=== PATIENT | female | born 1970 | race Two or more races ===

== ENCOUNTER 2023-08-25 15:08 | Outpatient (CLI) | payer OTHER | END 2023-08-25 15:40 | disposition home or self-care (01) | LOC: SONOGRAMA 15:08 | PROVIDERS: ATTEND Pathology Anatomic Pathology & Clinical Pathology | DX: D34 Benign neoplasm of thyroid gland (principal); E07.89 Other specified disorders of thyroid; E04.9 Nontoxic goiter, unspecified ==

== ENCOUNTER 2024-12-27 09:29 | Outpatient (CLI) | payer OTHER | END 2024-12-27 09:30 | disposition home or self-care (01) | LOC: SONOGRAMA 09:29 | PROVIDERS: ATTEND Pathology Anatomic Pathology & Clinical Pathology | DX: D34 Benign neoplasm of thyroid gland (principal); E06.3 Autoimmune thyroiditis; E04.9 Nontoxic goiter, unspecified ==